=== PATIENT | male | born 1985 | race Caucasian/White ===

== ENCOUNTER 2021-03-25 11:22 | Emergency (ER) | payer SELFPAY ==
[~2021-03-25] VITALS: Ht 177.8 cm; Wt 75.0 kg
[2021-03-25] MEDS ORDERED: AMOX-494 MT (11:40)
[2021-03-25] MEDS ORDERED: IBUP-2029 MT (11:40)
[2021-03-25] MEDS ORDERED: IBUPROFEN 600MG TABLET PO ONE (11:45)
[2021-03-25 12:01] VITALS: BP 121/65
== END 2021-03-25 12:02 | disposition home or self-care (01) ==
LOC: ER 11:22
DX: H66.91 Otitis media, unspecified, right ear (principal)
CPT/HCPCS: 99282